=== PATIENT | male | born 1990 | race Caucasian/White ===

== ENCOUNTER 2018-05-11 19:22 | Emergency (ER) | payer MEDICAID, OTHER ==
--- NOTE | 2018-05-11 20:16 | EDM.PDOC ---
ED HPI GENERAL MEDICAL PROBLEM - General Chief Complaint: Back Pain or Injury Stated Complaint: HURT BACK 04/15 NOW MUCH WORSE Time Seen by Provider: 05/11/18 20:00 Source of Information: Reports: Patient History Limitations: Reports: No Limitations - History of Present Illness INITIAL COMMENTS - FREE TEXT/NARRATIVE: 27 yo male was wrestling with a friend a couple weeks ago and woke up the next day with L low back pain. He went to a chiropractor and got partial/temporary relief. Now the pain is worse than ever and is radiating to the L knee more often. He is taking ibuprofen with only partial relief. He is going to school and doing light duty at a construction job as well. No bowel or bladder dysfunction. Onset: Sudden Onset Date: 04/27/18 Duration: Week(s): (2), Getting Worse Location: Reports: Back, Radiates to (L knee) Quality: Reports: Ache Severity: Moderate Improves with: Reports: Rest Worsens with: Reports: Movement (and time.) Context: Reports: Other (? from wrestling with a friend) Associated Symptoms: Reports: No Other Symptoms Treatments RECORDS SUPERVISOR: Reports: NSAIDS low left back Pain Score (Numeric/FACES): 7 - Related Data Allergies Allergy/AdvReac Type Severity Reaction Status Date / Time No Known Allergies Allergy Verified 05/11/18 19:45 Home Meds: Home Meds NK [No Known Home Meds] 05/11/18 [History] Past Medical History - Past Health History Medical/Surgical History: Denies Medical/Surgical History Social & Family History - Tobacco Use Packs/Tins Daily: 0.2 - Caffeine Use Caffeine Use: Reports: Coffee, Soda - Recreational Drug Use Recreational Drug Use: No ED ROS GENERAL - Review of Systems Review Of Systems: Unable To Obtain HEENT: Reports: No Symptoms Respiratory: Reports: No Symptoms Cardiovascular: Reports: No Symptoms GI/Abdominal: Reports: No Symptoms : Reports: No Symptoms Musculoskeletal: Reports: Back Pain Skin: Reports: No Symptoms Neurological: Reports: Other (pain radiating to L knee) Psychiatric: Reports: No Symptoms ED EXAM,LOWER BACK PAIN/INJURY - Physical Exam Exam: See Below Exam Limited By: No Limitations General Appearance: Alert, WD/WN, No Apparent Distress Eye Exam: Bilateral Eye: Normal Inspection Ears: Normal External Exam, Normal Canal, Hearing Grossly Normal Nose: Normal Inspection, Normal Mucosa, No Blood Throat/Mouth: Normal Inspection, Normal Lips, Normal Voice, No Airway Compromise Head: Atraumatic, Normocephalic Neck: Normal Inspection Respiratory/Chest: No Respiratory Distress, Lungs Clear Cardiovascular: Regular Rate, Rhythm Back Exam: Normal Inspection, Decreased Range of Motion, Muscle Spasm (L paraspinous at lumbar level), Paraspinal Tenderness (L of lumbar spine). No: CVA Tenderness (R), CVA Tenderness (L), Vertebral Tenderness Extremities: Normal Inspection, Normal Range of Motion, Non-Tender, No Pedal Edema Neurological: Alert, Normal Mood/Affect, CN II-XII Intact, No Motor/Sensory Deficits, Oriented x 3 DTR - Lower Extremities: 2+: Knee (R), Knee (L), Ankle (R), Ankle (L) Psychiatric: Normal Affect, Normal Mood Skin Exam: Warm, Dry, Intact, Normal Color, No Rash Lymphatic: No Adenopathy Course - Vital Signs Last Recorded V/S: Last Vital Signs Temp 36.3 C 05/11/18 19:53 Pulse 89 05/11/18 19:53 Resp 15 05/11/18 19:53 BP 127/85 05/11/18 19:53 Pulse Ox 95 05/11/18 19:53 Departure - Departure Time of Disposition: 20:20 Disposition: Home, Self-Care 01 Condition: Good Clinical Impression: Low back pain Qualifiers: Chronicity: unspecified Back pain laterality: left Sciatica presence: with sciatica Sciatica laterality: sciatica of left side Qualified Code(s): M54.42 - Lumbago with sciatica, left side - Discharge Information *PRESCRIPTION DRUG MONITORING PROGRAM REVIEWED*: No *COPY OF PRESCRIPTION DRUG MONITORING REPORT IN PATIENT CLAUDIA: No Instructions: Back Pain, Adult Referrals: PCP,None [Primary Care Provider] - Additional Instructions: Avoid lifting,bending or twisting. Take ibuprofen up to 800 mg every 6 hrs with food. Add Flexeril 5-10 mg every 8 hrs as needed. Add acetaminophen up to 1000 mg every 6 hrs as needed. Take prednisone as directed with food until gone. F/U with physical therapy next week and get established with a primary care provider in the event you are not improving with physical therapy.
== END 2018-05-11 20:34 | disposition home or self-care (01) ==
LOC: JP.ED 19:22
DX: M54.42 Lumbago with sciatica, left side (principal)
CPT/HCPCS: 99283